=== PATIENT | male | born 1955 | race Caucasian/White ===

== ENCOUNTER 2021-12-06 23:06 | Emergency (ER) | payer BC, MEDICARE ==
[~2021-12-06] VITALS: Ht 182.9 cm; Wt 167.8 kg
[~2021-12-06 23:06] MED LIST: CALCIUM CHLORIDE 1,000 MG/10 ML DISP.SYRIN ONE; EPINEPHrine SYRINGE 1 MG/10 ML SYRINGE. ONE; SODIUM BICARB ADULT 8.4% 50 MEQ/50 ML DISP.SYRIN. ONE
--- NOTE | 2021-12-07 00:02 | PHYS DOC ---
Adult General Chief Complaint Chief Complaint: CPR/FULL ARREST HPI HPI The patient is a 66-year-old obese male with unknown medical history. He presents via EMS in cardiac arrest. Per report from the ambulance crew, patient called 911 complaining of shortness of breath and requested an ambulance. EMS w ere activated. Upon their arrival to his semitrailer, EMS found the patient pulseless, apneic and unresponsive in the vehicle cab. They initiated cardiopulmonary resuscitation in the field, placed an iGel advanced airway and began transporting the patient. Blood glucose was appropriate during transport. Initial rhythm was PEA and at all subsequent pulse checks both during transport and after arrival to the emergency department, patient was in either PEA or asystole. No shockable rhythms were seen. Upon arrival to the emergency department, iGel was swapped out for an endotracheal tube. High-quality chest compressions and medications were continued as per ACLS protocol. Please see the code sheet for details. After about 50 minutes of continuous chest compressions, no progress had been made towards ROSC. Those present in the resuscitation were polled to ascertain whether there was any objection to pausing chest compressions to perform bedside echocardiography, with a plan to terminate resuscitation due to medical futility if cardiac standstill was noted. All present were in agreement. Chest compressions were accordingly paused and the patient's heart was evaluated with bedside echocardiography. Cardiac standstill was observed. With no meaningful prospects for return of circulation, resuscitation was then terminated due to futility and time of was called at 2328. Review of Systems Review of Systems Review of systems unobtainable secondary to unresponsive patient. Physical Exam Physical Exam Morbidly obese elderly male, cool, unresponsive and pulseless. Pupils fixed and dilated. Head is normocephalic and atraumatic. Neck is supple. Oropharynx is moist. Lungs with equal breath sounds from manual ventilation bilaterally. No heart tones auscultated. Abdomen soft and nondistended. Skin is cool and dry. Neurologically, GCS 3, unresponsive. EKG EKG [] Radiology/Procedures Radiology/Procedures Critical care time was 65 minutes exclusive of procedures. Procedure: Endotracheal Intubation Performed: ED physician Reason for Procedure: Respiratory failure. Using a GVL 4 laryngoscope blade, the vocal cords were visualized and a 7.5Fr ETT was placed to a depth of 24cm. Tracheal placement confirmed by auscultation and color change on a C02 detector. The ETT was secured. Colorimetry and bilateral ventilatory sounds from lhl-dbrjo-rsde ventilation confirmed p lacement. Course & Med Decision Making Course & Med Decision Making Patient arrived in cardiopulmonary arrest and unfortunately despite extended resuscitation efforts as per narrative above. Family were contacted a nd advised of Mr. Garcia' passing and their questions were answered. Dragon Disclaimer Dragon Disclaimer This electronic medical record was generated, in whole or in part, using a voice recognition dictation system. Departure Departure Impression: Primary Impression: Cardiac arrest Additional Impression: Disposition: 20 Condition: Problem Qualifiers ABDIEL MERCEDES MD Dec 07, 2021 00:02
== END 2021-12-07 03:00 ==
LOC: ER 23:06
DX: I46.9 Cardiac arrest, cause unspecified (principal); E66.9 Obesity, unspecified; Z68.43 Body mass index [BMI] 50.0-59.9, adult
CPT/HCPCS: 31500; 31720; 92950; 94760; 99291; J0171; J3490